=== PATIENT | male | born 1965 | race Caucasian/White ===

== ENCOUNTER 2016-02-22 05:28 | Inpatient (IN) | payer MEDICAID ==
[2016-02-22] VITALS (7 sets, daily range): BP systolic 142–160; BP diastolic 90–100
[~2016-02-22] VITALS: Ht 180.3 cm; Wt 137.9 kg
--- NOTE | ~2016-02-22 | EKG ---
[place], [place] ELECTROCARDIOGRAM REPORT NAME: ROHAN HANNA UNIT #: [id number] ROOM: 402 DOCTOR: COLLIN LEAL MD BIRTHDATE: [birth year] DOS: 02/22/2016 TIME: 05:56:16. RATE AND RHYTHM: Normal sinus rhythm at [address] interval 111 milliseconds, QRS duration 83 milliseconds, corrected QT interval 396 milliseconds, QRS axis is 66. IMPRESSION: Borderline short CT interval, normal sinus rhythm, essentially normal EKG. COLLIN LEAL MD CM:EKGRPT:ELECTROCARDIOGRAM REPORT [id number] COLLIN LEAL MD
--- NOTE | ~2016-02-22 | EKG ---
[place], [place] ELECTROCARDIOGRAM REPORT NAME: ROHAN HANNA UNIT #: [id number] ROOM: 402 DOCTOR: COLLIN LEAL MD BIRTHDATE: [birth year] DOS: 02/22/16 05:56:16 RATE AND RHYTHM: Normal sinus rhythm at 73 beats per minute. MD interval 111 milliseconds, QRS duration is 83 milliseconds, corrected QT interval is 396 milliseconds, QRS axis is 66. IMPRESSION: Sinus rhythm. Borderline short MD interval. Impression is normal EKG. COLLIN LEAL MD CM:EKGRPT:ELECTROCARDIOGRAM REPORT [id number] COLLIN LEAL MD
[~2016-02-22 05:28] MED LIST: ALBUTEROL2.5 MG/0.5 INH; AMOXICILLIN500 MG PO; CIPRO250 MG PO; CIPRO500 MG PO; CYCLOBENZAPRINE10 MG PO; DUONEB 3 MG/3 ML3 M1 INH; HYDROCODONE BIT1 T11 PO; MICRO AIR1 EACH MC; PREDNICOT20 MG PO; PREDNISONE10 MG PO; PREDNISONE20 M1 PO; PREDNISONE50 MG PO; TESSALON PERLE200 MG PO; VENTOLIN 02.5 MG/3 M INH; VIBRAMYCIN100 MG PO
[2016-02-22 06:04] LABS: BASO # 0.1 10*3/uL (0.0-0.1); BASO % 1.1 % (0.0-1.0); EOS # 0.9 10*3/uL (0.0-0.4); EOS % 7.7 % (1.0-4.0); HEMATOCRIT 46.2 % (42.0-52.0); HEMOGLOBIN 16.1 g/dl (14.0-18.0); IG # 0.1 10*3/uL (0.0-0.1); LYMPH # 3.8 10*3/uL (1.3-4.4); LYMPH % 33.2 % (27.0-41.0); MEAN CELL VOLUME 92.8 fl (80.0-94.0); MEAN CORPUSCULAR HGB 32.3 pg (27.0-31.0); MEAN CORPUSCULAR HGB CONC 34.8 g/dl (33.0-37.0); MEAN PLATELET VOLUME 10.6 fl (9.6-12.3); MONO % 8.3 % (3.0-9.0); NEUT # 5.7 10*3/uL (2.3-7.9); NEUT % 49.3 % (47.0-73.0); PLATELET COUNT AUTOMATED 238 10*3/uL (130-400); RED BLOOD COUNT 4.98 10*6/uL (4.50-5.90); RED CELL DISTRI WIDTH 13.2 % (0-14.5); WHITE BLOOD COUNT 11.5 10*3/uL (4.8-10.8)
[2016-02-22 06:18] LABS: ALBUMIN 3.2 gm/dl (3.1-4.5); ALKALINE PHOSPHATASE 110 U/L (45-117); BILIRUBIN, TOTAL 0.3 mg/dl (0.2-1.0); BUN 15 mg/dl (7-24); CARBON DIOXIDE 26 mmol/L (21-32); CHLORIDE 105 mmol/L (98-107); EST GLOM FILT AFRICAN AMERICAN > 60 ml/min; GLUCOSE 117 mg/dL (65-99); POTASSIUM 4.3 mmol/L (3.5-5.1); SGOT/AST 65 IU/L (3-35); SGPT/ALT 164 U/L (12-78); SODIUM 141 mmol/L (136-145); TOTAL PROTEIN 7.8 gm/dL (6.4-8.2)
[2016-02-22 06:19] LABS: INTERNATIONAL NORM RATIO 0.9 (2.0-3.5); PROTHROMBIN TIME 9.6 SECONDS (9.0-12.4)
[2016-02-22 06:21] LABS: C-REACTIVE PROTEIN 1.74 MG/DL (0-0.3); CKMB 3.9 ng/ml (0.5-3.6); MAGNESIUM 2.2 mg/dL (1.5-2.1)
[2016-02-22 12:22] LABS: BILIRUBIN NEGATIVE (NEGATIVE); BLOOD NEGATIVE (NEGATIVE); CLARITY CLEAR (CLEAR); COLOR YELLOW (YELLOW); GLUCOSE NEGATIVE (NEGATIVE); KETONE NEGATIVE (NEGATIVE); LEUKO ESTERASE NEGATIVE (NEGATIVE); NITRITE NEGATIVE (NEGATIVE); PH 6.5 (5.0-9.0); PROTEIN NEGATIVE (NEGATIVE); UROBILINOGEN 0.2 E.U./dl (0.2-1.0)
[2016-02-22 12:40] LABS: EPITHELIAL CELLS 0-2; MUCOUS TRACE; URINE REFLEX COMMENT NO (NO)
[2016-02-22 13:08] LABS: CKMB 3.1 ng/ml (0.5-3.6)
[2016-02-22 18:31] LABS: CKMB 2.5 ng/ml (0.5-3.6)
[2016-02-23] VITALS: BP 156/103
[2016-02-23 00:45] LABS: CKMB 2.4 ng/ml (0.5-3.6)
[2016-02-23 06:24] LABS: HEMATOCRIT 44.6 % (42.0-52.0); HEMOGLOBIN 15.4 g/dl (14.0-18.0); MEAN CELL VOLUME 92.5 fl (80.0-94.0); MEAN CORPUSCULAR HGB CONC 34.5 g/dl (33.0-37.0); MEAN PLATELET VOLUME 10.9 fl (9.6-12.3); PLATELET COUNT AUTOMATED 235 10*3/uL (130-400); RED BLOOD COUNT 4.82 10*6/uL (4.50-5.90); RED CELL DISTRI WIDTH 12.9 % (0-14.5); WHITE BLOOD COUNT 25.3 10*3/uL (4.8-10.8)
[2016-02-23 06:46] LABS: HEMOGLOBIN A1c 5.8 % (4.8-5.6)
[2016-02-23 07:00] LABS: ALKALINE PHOSPHATASE 88 U/L (45-117); BILIRUBIN, TOTAL 0.4 mg/dl (0.2-1.0); BUN 12 mg/dl (7-24); CARBON DIOXIDE 26 mmol/L (21-32); CHLORIDE 110 mmol/L (98-107); EST GLOM FILT AFRICAN AMERICAN > 60 ml/min; GLUCOSE 149 mg/dL (65-99); SGOT/AST 27 IU/L (3-35); SGPT/ALT 127 U/L (12-78); SODIUM 144 mmol/L (136-145); TOTAL PROTEIN 7.7 gm/dL (6.4-8.2)
[2016-02-23 07:08] LABS: FREE T4 1.04 ng/dl (0.76-1.46); MAGNESIUM 2.5 mg/dL (1.5-2.1); THYROID STIM HORMONE (HS) 0.216 uIU/ml (0.358-4.75)
[2016-02-23 07:17] LABS: LYMPHOCYTE # 1.3 10*3/uL (1.3-4.4); MONOCYTE # 1.5 10*3/uL (0.1-1.0); NEUTROPHIL # 22.5 10*3/uL (2.3-7.9); NEUTROPHILS 89 % (47-73); PLATELET SUFFICIENCY NORMAL (NORMAL); TOTAL CELLS COUNTED 100 #CELLS
[2016-02-23 07:24] LABS: PROTHROMBIN TIME 10.5 SECONDS (9.0-12.4)
[2016-02-23 07:32] LABS: HEPATITIS C VIRUS ANTIBODY >11.0 s/co (0.0-0.9)
[2016-02-23 08:00] VITALS: BP 140/90
[2016-02-23 12:00] VITALS: BP 130/82
[2016-02-23 13:04] LABS: FOLIC ACID 16.27 ng/mL (>5.38)
[2016-02-23 16:13] VITALS: BP 160/88
[2016-02-23 20:00] VITALS: BP 150/89
[2016-02-24] VITALS: BP 159/94
[2016-02-24 04:00] VITALS: BP 150/100
[2016-02-24 08:00] VITALS: BP 146/86
[2016-02-24 12:00] VITALS: BP 150/89
[2016-02-24 12:30] LABS: HEMATOCRIT 44.8 % (42.0-52.0); HEMOGLOBIN 15.6 g/dl (14.0-18.0); MEAN CELL VOLUME 93.1 fl (80.0-94.0); MEAN CORPUSCULAR HGB 32.4 pg (27.0-31.0); MEAN CORPUSCULAR HGB CONC 34.8 g/dl (33.0-37.0); MEAN PLATELET VOLUME 10.8 fl (9.6-12.3); PLATELET COUNT AUTOMATED 249 10*3/uL (130-400); RED BLOOD COUNT 4.81 10*6/uL (4.50-5.90); RED CELL DISTRI WIDTH 13.2 % (0-14.5); WHITE BLOOD COUNT 20.1 10*3/uL (4.8-10.8)
[2016-02-24 12:44] LABS: ALBUMIN 3.1 gm/dl (3.1-4.5); ALKALINE PHOSPHATASE 83 U/L (45-117); BILIRUBIN, TOTAL 0.3 mg/dl (0.2-1.0); BUN 15 mg/dl (7-24); CARBON DIOXIDE 25 mmol/L (21-32); CHLORIDE 107 mmol/L (98-107); EST GLOM FILT AFRICAN AMERICAN > 60 ml/min; GLUCOSE 173 mg/dL (65-99); POTASSIUM 4.1 mmol/L (3.5-5.1); SGOT/AST 16 IU/L (3-35); SGPT/ALT 94 U/L (12-78); SODIUM 141 mmol/L (136-145); TOTAL PROTEIN 7.5 gm/dL (6.4-8.2)
[2016-02-24 13:15] LABS: LYMPHOCYTE # 1.2 10*3/uL (1.3-4.4); NEUTROPHIL # 18.9 10*3/uL (2.3-7.9); NEUTROPHILS 94 % (47-73); PLATELET SUFFICIENCY NORMAL (NORMAL); TOTAL CELLS COUNTED 100 #CELLS
[2016-02-24] MEDS ORDERED: PREDNISONE10 MG PO (13:44)
[2016-02-24] MEDS ORDERED: CIPRO500 MG PO (13:44)
[2016-02-24] MEDS ORDERED: LISINOPRIL10 M1 PO (13:44)
[2016-03-29] MEDS ORDERED: DEBROX15 ML OT (09:50)
[2016-04-13] MEDS ORDERED: PREDNISONE10 MG PO (13:32)
[2016-04-13] MEDS ORDERED: ZITHROMAX250 MG PO (13:36)
[2016-04-13] MEDS ORDERED: ALBUTEROL 3 ML 33 ML INH (13:37)
[2016-04-16] MEDS ORDERED: DOXYCYCLINE MO100 M1 PO (14:54)
[2016-04-16] MEDS ORDERED: PREDNISONE10 MG PO (14:54)
[2016-04-16] MEDS ORDERED: VITAMIN D-32000 UNIT PO (14:59)
== END 2016-02-24 15:23 | disposition home or self-care (01) | DRG 192 ==
LOC: ED 05:28 → EDHOLD 06:40 → 4E 07:53
PROVIDERS: Emergency Medicine; Hospitalist; Internal Medicine
DX: J44.1 Chronic obstructive pulmonary disease with (acute) exacerbation (principal); E88.81 Metabolic syndrome and other insulin resistance; K76.0 Fatty (change of) liver, not elsewhere classified; E66.01 Morbid (severe) obesity due to excess calories; F17.200 Nicotine dependence, unspecified, uncomplicated; D72.829 Elevated white blood cell count, unspecified; E83.41 Hypermagnesemia; I10 Essential (primary) hypertension; Z79.899 Other long term (current) drug therapy; Z82.5 Family history of asthma and other chronic lower respiratory diseases; Z86.19 Personal history of other infectious and parasitic diseases; Z68.30 Body mass index [BMI] 30.0-30.9, adult

== ENCOUNTER 2016-05-29 04:18 | Inpatient (IN) | payer OTHER ==
[~2016-05-29] VITALS: Ht 180.3 cm; Wt 136.1 kg
[2016-05-29] VITALS (10 sets, daily range): BP systolic 131–169; BP diastolic 84–100
[~2016-05-29 04:18] MED LIST changes: +ALBUTEROL 3 ML 33 ML INH; +DEBROX15 ML OT; +DOXYCYCLINE MO100 M1 PO; +LISINOPRIL10 M1 PO; +VITAMIN D-32000 UNIT PO; +ZITHROMAX250 MG PO
[2016-05-29 04:46] LABS: BASO # 0.1 10*3/uL (0.0-0.1); BASO % 0.5 % (0.0-1.0); EOS # 0.2 10*3/uL (0.0-0.4); EOS % 1.4 % (1.0-4.0); HEMATOCRIT 49.3 % (42.0-52.0); HEMOGLOBIN 17.1 g/dl (14.0-18.0); IG # 0.1 10*3/uL (0.0-0.1); LYMPH % 6.6 % (27.0-41.0); MEAN CELL VOLUME 94.1 fl (80.0-94.0); MEAN CORPUSCULAR HGB 32.6 pg (27.0-31.0); MEAN CORPUSCULAR HGB CONC 34.7 g/dl (33.0-37.0); MEAN PLATELET VOLUME 10.8 fl (9.6-12.3); MONO # 0.8 10*3/uL (0.1-1.0); MONO % 5.1 % (3.0-9.0); NEUT # 13.2 10*3/uL (2.3-7.9); NEUT % 85.9 % (47.0-73.0); PLATELET COUNT AUTOMATED 280 10*3/uL (130-400); RED BLOOD COUNT 5.24 10*6/uL (4.50-5.90); RED CELL DISTRI WIDTH 13.3 % (0-14.5); WHITE BLOOD COUNT 15.4 10*3/uL (4.8-10.8)
[2016-05-29 05:02] LABS: ALBUMIN 3.7 gm/dl (3.1-4.5); ALKALINE PHOSPHATASE 120 U/L (45-117); BILIRUBIN, TOTAL 0.6 mg/dl (0.2-1.0); BUN 16 mg/dl (7-24); C-REACTIVE PROTEIN 1.35 MG/DL (0-0.3); CARBON DIOXIDE 28 mmol/L (21-32); CHLORIDE 104 mmol/L (98-107); EST GLOM FILT AFRICAN AMERICAN > 60 ml/min; GLUCOSE 166 mg/dL (65-99); POTASSIUM 4.2 mmol/L (3.5-5.1); SGOT/AST 82 IU/L (3-35); SGPT/ALT 194 U/L (12-78); SODIUM 140 mmol/L (136-145); TOTAL PROTEIN 8.4 gm/dL (6.4-8.2)
[2016-05-29 05:05] LABS: TROPONIN I < 0.015 ng/ml (<0.045)
[2016-05-29 07:23] LABS: HEMATOCRIT 48.1 % (42.0-52.0); HEMOGLOBIN 16.5 g/dl (14.0-18.0); MEAN CELL VOLUME 94.9 fl (80.0-94.0); MEAN CORPUSCULAR HGB 32.5 pg (27.0-31.0); MEAN CORPUSCULAR HGB CONC 34.3 g/dl (33.0-37.0); MEAN PLATELET VOLUME 10.8 fl (9.6-12.3); PLATELET COUNT AUTOMATED 263 10*3/uL (130-400); RED BLOOD COUNT 5.07 10*6/uL (4.50-5.90); RED CELL DISTRI WIDTH 13.4 % (0-14.5); WHITE BLOOD COUNT 17.2 10*3/uL (4.8-10.8)
[2016-05-29 07:43] LABS: ATYPICAL LYMPHS 2 % (0-0); LYMPHOCYTE # 0.7 10*3/uL (1.3-4.4); MONOCYTE # 0.7 10*3/uL (0.1-1.0); NEUTROPHIL # 15.8 10*3/uL (2.3-7.9); NEUTROPHILS 92 % (47-73); PLATELET SUFFICIENCY NORMAL (NORMAL); TOTAL CELLS COUNTED 100 #CELLS
[2016-05-29 08:30] LABS: BILIRUBIN NEGATIVE (NEGATIVE); BLOOD NEGATIVE (NEGATIVE); CLARITY CLEAR (CLEAR); COLOR YELLOW (YELLOW); GLUCOSE NEGATIVE (NEGATIVE); KETONE NEGATIVE (NEGATIVE); LEUKO ESTERASE NEGATIVE (NEGATIVE); NITRITE NEGATIVE (NEGATIVE); PROTEIN NEGATIVE (NEGATIVE); SPECIFIC GRAVITY 1.025 (1.005-1.030); UROBILINOGEN 0.2 E.U./dl (0.2-1.0)
[2016-05-29 09:02] LABS: MUCOUS 1+; URINE REFLEX COMMENT NO (NO)
[2016-05-29 12:20] LABS: CPK 309 U/L (39-308)
[2016-05-29 12:24] LABS: CKMB 9.7 ng/ml (0.5-3.6); TROPONIN I < 0.015 ng/ml (<0.045)
[2016-05-29] MEDS ORDERED: LISINOPRIL10 M1 PO (14:14)
[2016-05-29 18:21] LABS: CPK 355 U/L (39-308)
[2016-05-29 18:26] LABS: TROPONIN I < 0.015 ng/ml (<0.045)
[2016-05-29 18:38] LABS: CKMB 11.1 ng/ml (0.5-3.6)
[2016-05-30] VITALS: BP 108/74
[2016-05-30 00:43] LABS: CPK 377 U/L (39-308)
[2016-05-30 00:45] LABS: CKMB 11.7 ng/ml (0.5-3.6); TROPONIN I < 0.015 ng/ml (<0.045)
[2016-05-30 06:05] LABS: ALBUMIN 2.7 gm/dl (3.1-4.5); ALKALINE PHOSPHATASE 72 U/L (45-117); BILIRUBIN, TOTAL 0.5 mg/dl (0.2-1.0); BUN 13 mg/dl (7-24); CARBON DIOXIDE 29 mmol/L (21-32); CHLORIDE 108 mmol/L (98-107); CHOLESTEROL 91 mg/dL (<200); EST GLOM FILT AFRICAN AMERICAN > 60 ml/min; FREE T4 1.15 ng/dl (0.76-1.46); GLUCOSE 93 mg/dL (65-99); HDL CHOLESTEROL 43 mg/dl (40-60); LDL CHOLESTEROL 32 mg/dL (9-159); MAGNESIUM 1.9 mg/dL (1.5-2.1); PHOSPHOROUS 2.3 mg/dL (2.5-4.9); POTASSIUM 3.4 mmol/L (3.5-5.1); SGOT/AST 59 IU/L (3-35); SGPT/ALT 130 U/L (12-78); SODIUM 141 mmol/L (136-145); THYROID STIM HORMONE (HS) 0.361 uIU/ml (0.358-4.75); TOTAL PROTEIN 6.4 gm/dL (6.4-8.2); TRIGLYCERIDES 79 mg/dl (<150); VLDL CHOLESTEROL 16 mg/dL (6-40)
[2016-05-30 06:06] LABS: BASO % 0.4 % (0.0-1.0); EOS # 0.1 10*3/uL (0.0-0.4); EOS % 0.9 % (1.0-4.0); HEMATOCRIT 42.9 % (42.0-52.0); HEMOGLOBIN 14.5 g/dl (14.0-18.0); LYMPH # 1.5 10*3/uL (1.3-4.4); LYMPH % 22.6 % (27.0-41.0); MEAN CELL VOLUME 97.1 fl (80.0-94.0); MEAN CORPUSCULAR HGB 32.8 pg (27.0-31.0); MEAN CORPUSCULAR HGB CONC 33.8 g/dl (33.0-37.0); MEAN PLATELET VOLUME 10.9 fl (9.6-12.3); MONO # 0.6 10*3/uL (0.1-1.0); NEUT # 4.5 10*3/uL (2.3-7.9); NEUT % 66.5 % (47.0-73.0); PLATELET COUNT AUTOMATED 187 10*3/uL (130-400); RED BLOOD COUNT 4.42 10*6/uL (4.50-5.90); RED CELL DISTRI WIDTH 13.3 % (0-14.5); WHITE BLOOD COUNT 6.8 10*3/uL (4.8-10.8)
[2016-05-30 06:10] LABS: HEMOGLOBIN A1c 5.8 % (4.8-5.6); PROTHROMBIN TIME 10.7 SECONDS (9.0-12.4)
[2016-05-30 06:54] LABS: FOLIC ACID 9.68 ng/mL (>5.38); VITAMIN D, 25-HYDROXY 26.3 ng/mL (30-100)
[2016-05-30 08:00] VITALS: BP 152/90
[2016-05-30] MEDS ORDERED: Zofran4 MG PO (11:08)
[2016-05-30] MEDS ORDERED: CIPRO500 MG PO (11:08)
[2016-05-30] MEDS ORDERED: FLAGYL500 MG PO (11:08)
[2016-05-30 12:00] VITALS: BP 139/83
== END 2016-05-30 12:37 | disposition home or self-care (01) | DRG 871 ==
LOC: ED 04:18 → 4E 08:44 → EDHOLD 08:44 → 4E 08:56
PROVIDERS: Emergency Medicine Emergency Medical Services; Internal Medicine
DX: A41.9 Sepsis, unspecified organism (principal); J96.20 Acute and chronic respiratory failure, unspecified whether with hypoxia or hypercapnia; K76.0 Fatty (change of) liver, not elsewhere classified; E44.0 Moderate protein-calorie malnutrition; Z68.41 Body mass index [BMI] 40.0-44.9, adult; K52.9 Noninfective gastroenteritis and colitis, unspecified; K82.8 Other specified diseases of gallbladder; J44.9 Chronic obstructive pulmonary disease, unspecified; I10 Essential (primary) hypertension; E66.01 Morbid (severe) obesity due to excess calories; Z87.891 Personal history of nicotine dependence; Z82.5 Family history of asthma and other chronic lower respiratory diseases; Z79.899 Other long term (current) drug therapy

== ENCOUNTER 2016-06-22 07:05 | Inpatient (IN) | payer OTHER ==
[~2016-06-22] VITALS: Ht 180.3 cm; Wt 143.8 kg
[2016-06-22] VITALS (7 sets, daily range): BP systolic 123–152; BP diastolic 87–104
[~2016-06-22 07:05] MED LIST changes: +FLAGYL500 MG PO; +Zofran4 MG PO
[2016-06-22 09:42] LABS: BASO # 0.1 10*3/uL (0.0-0.1); EOS # 0.6 10*3/uL (0.0-0.4); EOS % 5.4 % (1.0-4.0); HEMATOCRIT 45.3 % (42.0-52.0); HEMOGLOBIN 15.5 g/dl (14.0-18.0); IG # 0.1 10*3/uL (0.0-0.1); LYMPH # 3.8 10*3/uL (1.3-4.4); LYMPH % 36.3 % (27.0-41.0); MEAN CELL VOLUME 93.4 fl (80.0-94.0); MEAN CORPUSCULAR HGB CONC 34.2 g/dl (33.0-37.0); MONO # 0.9 10*3/uL (0.1-1.0); MONO % 8.2 % (3.0-9.0); NEUT # 5.1 10*3/uL (2.3-7.9); NEUT % 48.5 % (47.0-73.0); PLATELET COUNT AUTOMATED 228 10*3/uL (130-400); RED BLOOD COUNT 4.85 10*6/uL (4.50-5.90); RED CELL DISTRI WIDTH 12.8 % (0-14.5); WHITE BLOOD COUNT 10.5 10*3/uL (4.8-10.8)
[2016-06-22 09:59] LABS: BUN 8 mg/dl (7-24); CARBON DIOXIDE 30 mmol/L (21-32); CHLORIDE 109 mmol/L (98-107); EST GLOM FILT AFRICAN AMERICAN > 60 ml/min; GLUCOSE 117 mg/dL (65-99); POTASSIUM 3.7 mmol/L (3.5-5.1); SODIUM 140 mmol/L (136-145)
[2016-06-22 10:03] LABS: TROPONIN I < 0.015 ng/ml (<0.045)
[2016-06-22 11:46] LABS: CPK 224 U/L (39-308)
[2016-06-22 11:54] LABS: TROPONIN I < 0.015 ng/ml (<0.045)
[2016-06-22 13:51] LABS: BILIRUBIN NEGATIVE (NEGATIVE); BLOOD NEGATIVE (NEGATIVE); CLARITY CLEAR (CLEAR); COLOR YELLOW (YELLOW); GLUCOSE NEGATIVE (NEGATIVE); KETONE NEGATIVE (NEGATIVE); LEUKO ESTERASE NEGATIVE (NEGATIVE); NITRITE NEGATIVE (NEGATIVE); PH 5.5 (5.0-9.0); PROTEIN NEGATIVE (NEGATIVE); UROBILINOGEN 0.2 E.U./dl (0.2-1.0)
[2016-06-22 14:20] LABS: URINE REFLEX COMMENT NO (NO)
[2016-06-22 19:22] LABS: CKMB 3.6 ng/ml (0.5-3.6); CPK 221 U/L (39-308)
[2016-06-22 19:27] LABS: TROPONIN I < 0.015 ng/ml (<0.045)
[2016-06-23] VITALS: BP 152/88
[2016-06-23 00:31] LABS: CKMB 3.6 ng/ml (0.5-3.6); CPK 187 U/L (39-308)
[2016-06-23 00:36] LABS: TROPONIN I < 0.015 ng/ml (<0.045)
[2016-06-23 06:23] LABS: BASO % 0.1 % (0.0-1.0); HEMATOCRIT 44.3 % (42.0-52.0); IG # 0.2 10*3/uL (0.0-0.1); LYMPH # 1.7 10*3/uL (1.3-4.4); LYMPH % 7.9 % (27.0-41.0); MEAN CELL VOLUME 95.5 fl (80.0-94.0); MEAN CORPUSCULAR HGB 32.3 pg (27.0-31.0); MEAN CORPUSCULAR HGB CONC 33.9 g/dl (33.0-37.0); MEAN PLATELET VOLUME 11.3 fl (9.6-12.3); MONO # 0.6 10*3/uL (0.1-1.0); MONO % 2.8 % (3.0-9.0); NEUT # 18.4 10*3/uL (2.3-7.9); NEUT % 88.1 % (47.0-73.0); PLATELET COUNT AUTOMATED 231 10*3/uL (130-400); RED BLOOD COUNT 4.64 10*6/uL (4.50-5.90); RED CELL DISTRI WIDTH 12.9 % (0-14.5); WHITE BLOOD COUNT 20.9 10*3/uL (4.8-10.8)
[2016-06-23 06:56] LABS: ALBUMIN 3.2 gm/dl (3.1-4.5); BILIRUBIN, TOTAL 0.3 mg/dl (0.2-1.0); BUN 11 mg/dl (7-24); CARBON DIOXIDE 26 mmol/L (21-32); CHLORIDE 110 mmol/L (98-107); CHOLESTEROL 163 mg/dL (<200); EST GLOM FILT AFRICAN AMERICAN > 60 ml/min; GLUCOSE 175 mg/dL (65-99); MAGNESIUM 2.2 mg/dL (1.5-2.1); PHOSPHOROUS 2.2 mg/dL (2.5-4.9); POTASSIUM 3.9 mmol/L (3.5-5.1); SGOT/AST 17 IU/L (3-35); SGPT/ALT 46 U/L (12-78); SODIUM 142 mmol/L (136-145); TOTAL PROTEIN 7.2 gm/dL (6.4-8.2)
[2016-06-23 07:02] LABS: ALKALINE PHOSPHATASE 83 U/L (45-117); FREE T4 0.91 ng/dl (0.76-1.46); HDL CHOLESTEROL 63 mg/dl (40-60); LDL CHOLESTEROL 86 mg/dL (9-159); THYROID STIM HORMONE (HS) 0.231 uIU/ml (0.358-4.75); TRIGLYCERIDES 68 mg/dl (<150); VLDL CHOLESTEROL 14 mg/dL (6-40)
[2016-06-23 07:05] LABS: PROTHROMBIN TIME 10.4 SECONDS (9.0-12.4)
[2016-06-23 07:17] LABS: FOLIC ACID 8.62 ng/mL (>5.38); VITAMIN D, 25-HYDROXY 29.4 ng/mL (30-100)
[2016-06-23 08:00] VITALS: BP 140/85
[2016-06-23 12:00] VITALS: BP 158/86
[2016-06-23] MEDS ORDERED: SPIRIVA RESPIMAT4 GM INH (13:05)
[2016-06-23] MEDS ORDERED: PREDNISONE10 MG PO (13:05)
[2016-06-23] MEDS ORDERED: LISINOPRIL10 M1 PO (13:12)
[2016-06-23] MEDS ORDERED: VITAMIN E-SYNT400 IU PO (13:12)
[2016-06-23] MEDS ORDERED: AZITHROMYCIN500 M2 PO (13:12)
[2016-06-23] MEDS ORDERED: DUONEB 3 MG/3 ML3 M1 NEB (13:12)
[2016-06-23] MEDS ORDERED: D-1000 185 MG-11 TAB PO (13:12)
[2016-06-23] MEDS ORDERED: MUCINEX ER600 MG PO (13:12)
== END 2016-06-23 14:28 | disposition home or self-care (01) | DRG 190 ==
LOC: ED 07:05 → 4E 09:41 → EDHOLD 09:41 → 4E 10:03
PROVIDERS: Emergency Medicine; Hospitalist
DX: J44.0 Chronic obstructive pulmonary disease with (acute) lower respiratory infection (principal); J96.21 Acute and chronic respiratory failure with hypoxia; J18.9 Pneumonia, unspecified organism; E44.0 Moderate protein-calorie malnutrition; E88.81 Metabolic syndrome and other insulin resistance; K76.0 Fatty (change of) liver, not elsewhere classified; Z68.41 Body mass index [BMI] 40.0-44.9, adult; J44.1 Chronic obstructive pulmonary disease with (acute) exacerbation; I10 Essential (primary) hypertension; B19.20 Unspecified viral hepatitis C without hepatic coma; E66.01 Morbid (severe) obesity due to excess calories; E55.9 Vitamin D deficiency, unspecified; Z87.891 Personal history of nicotine dependence; Z84.89 Family history of other specified conditions; Z82.5 Family history of asthma and other chronic lower respiratory diseases

== ENCOUNTER 2016-08-10 09:57 | Emergency (ER) | payer OTHER ==
[~2016-08-10] VITALS: Wt 136.1 kg
[~2016-08-10 09:57] MED LIST changes: +AZITHROMYCIN500 M2 PO; +D-1000 185 MG-11 TAB PO; +DUONEB 3 MG/3 ML3 M1 NEB; +MUCINEX ER600 MG PO; +SPIRIVA RESPIMAT4 GM INH; +VITAMIN E-SYNT400 IU PO
[2016-08-10 10:33] LABS: BASO # 0.1 10*3/uL (0.0-0.1); BASO % 0.7 % (0.0-1.0); EOS # 0.5 10*3/uL (0.0-0.4); HEMATOCRIT 44.8 % (42.0-52.0); HEMOGLOBIN 15.8 g/dl (14.0-18.0); IG # 0.1 10*3/uL (0.0-0.1); LYMPH # 3.5 10*3/uL (1.3-4.4); LYMPH % 26.5 % (27.0-41.0); MEAN CELL VOLUME 91.8 fl (80.0-94.0); MEAN CORPUSCULAR HGB 32.4 pg (27.0-31.0); MEAN CORPUSCULAR HGB CONC 35.3 g/dl (33.0-37.0); MONO # 0.9 10*3/uL (0.1-1.0); MONO % 6.8 % (3.0-9.0); NEUT # 8.2 10*3/uL (2.3-7.9); NEUT % 61.5 % (47.0-73.0); PLATELET COUNT AUTOMATED 253 10*3/uL (130-400); RED BLOOD COUNT 4.88 10*6/uL (4.50-5.90); RED CELL DISTRI WIDTH 13.2 % (0-14.5); WHITE BLOOD COUNT 13.3 10*3/uL (4.8-10.8)
[2016-08-10 10:46] LABS: ALBUMIN 3.4 gm/dl (3.1-4.5); ALKALINE PHOSPHATASE 105 U/L (45-117); BILIRUBIN, TOTAL 0.7 mg/dl (0.2-1.0); BUN 8 mg/dl (7-24); CARBON DIOXIDE 26 mmol/L (21-32); CHLORIDE 106 mmol/L (98-107); EST GLOM FILT AFRICAN AMERICAN > 60 ml/min; GLUCOSE 110 mg/dL (65-99); POTASSIUM 3.7 mmol/L (3.5-5.1); SGOT/AST 101 IU/L (3-35); SGPT/ALT 218 U/L (12-78); SODIUM 140 mmol/L (136-145); TOTAL PROTEIN 7.9 gm/dL (6.4-8.2)
[2016-08-10] MEDS ORDERED: PREDNISONE10 MG PO (12:21)
[2016-08-10] MEDS ORDERED: DOXYCYCLINE100 M3 PO (12:21)
== END 2016-08-10 12:37 | disposition home or self-care (01) ==
LOC: ED 09:57
PROVIDERS: Registered Nurse
DX: J20.9 Acute bronchitis, unspecified (principal); J45.909 Unspecified asthma, uncomplicated; J44.9 Chronic obstructive pulmonary disease, unspecified; Z87.891 Personal history of nicotine dependence

== ENCOUNTER 2016-10-17 13:03 | Emergency (ER) | payer OTHER ==
[~2016-10-17] VITALS: Wt 134.3 kg
[~2016-10-17 13:03] MED LIST changes: +DOXYCYCLINE100 M3 PO
[2016-10-17 13:37] LABS: BASO # 0.1 10*3/uL (0.0-0.1); BASO % 0.9 % (0.0-1.0); EOS # 0.4 10*3/uL (0.0-0.4); EOS % 2.9 % (1.0-4.0); HEMATOCRIT 45.5 % (42.0-52.0); HEMOGLOBIN 15.9 g/dl (14.0-18.0); LYMPH # 2.9 10*3/uL (1.3-4.4); LYMPH % 24.7 % (27.0-41.0); MEAN CELL VOLUME 95.2 fl (80.0-94.0); MEAN CORPUSCULAR HGB 33.3 pg (27.0-31.0); MEAN CORPUSCULAR HGB CONC 34.9 g/dl (33.0-37.0); MEAN PLATELET VOLUME 11.1 fl (9.6-12.3); MONO # 0.9 10*3/uL (0.1-1.0); MONO % 7.5 % (3.0-9.0); NEUT # 7.5 10*3/uL (2.3-7.9); NEUT % 63.4 % (47.0-73.0); PLATELET COUNT AUTOMATED 244 10*3/uL (130-400); RED BLOOD COUNT 4.78 10*6/uL (4.50-5.90); RED CELL DISTRI WIDTH 13.1 % (0-14.5); WHITE BLOOD COUNT 11.9 10*3/uL (4.8-10.8)
[2016-10-17 13:46] LABS: ACT PARTIAL THROMBO TIME 24.3 SECONDS (20.8-31.5)
[2016-10-17 13:53] LABS: ALBUMIN 3.4 gm/dl (3.1-4.5); ALKALINE PHOSPHATASE 86 U/L (45-117); BUN 8 mg/dl (7-24); CHLORIDE 106 mmol/L (98-107); CKMB 1.5 ng/ml (0.5-3.6); CPK 82 U/L (39-308); CREATININE 0.84 mg/dL (0.70-1.30); LIPASE 176 U/L (73-393); MAGNESIUM 2.3 mg/dL (1.5-2.1); POTASSIUM 4.2 mmol/L (3.5-5.1); SGOT/AST 68 IU/L (3-35); SGPT/ALT 117 U/L (12-78); SODIUM 141 mmol/L (136-145); TOTAL PROTEIN 7.7 gm/dL (6.4-8.2)
[2016-10-17 13:55] LABS: TROPONIN I < 0.015 ng/ml (<0.045)
== END 2016-10-17 14:41 | disposition left against medical advice (07) ==
LOC: ED 13:03
PROVIDERS: Emergency Medicine
DX: J44.1 Chronic obstructive pulmonary disease with (acute) exacerbation (principal); R42 Dizziness and giddiness; I10 Essential (primary) hypertension; E11.9 Type 2 diabetes mellitus without complications; Z87.891 Personal history of nicotine dependence

== ENCOUNTER 2016-11-08 08:03 | Emergency (ER) | payer OTHER ==
[~2016-11-08] VITALS: Ht 180.3 cm; Wt 133.4 kg
[2016-11-08 08:21] LABS: BASO # 0.1 10*3/uL (0.0-0.1); EOS # 0.7 10*3/uL (0.0-0.4); EOS % 6.3 % (1.0-4.0); HEMATOCRIT 44.3 % (42.0-52.0); HEMOGLOBIN 15.3 g/dl (14.0-18.0); LYMPH # 3.6 10*3/uL (1.3-4.4); LYMPH % 34.3 % (27.0-41.0); MEAN CELL VOLUME 94.3 fl (80.0-94.0); MEAN CORPUSCULAR HGB 32.6 pg (27.0-31.0); MEAN CORPUSCULAR HGB CONC 34.5 g/dl (33.0-37.0); MEAN PLATELET VOLUME 11.1 fl (9.6-12.3); MONO # 0.9 10*3/uL (0.1-1.0); MONO % 8.4 % (3.0-9.0); NEUT # 5.2 10*3/uL (2.3-7.9); NEUT % 49.5 % (47.0-73.0); PLATELET COUNT AUTOMATED 263 10*3/uL (130-400); RED CELL DISTRI WIDTH 12.7 % (0-14.5); WHITE BLOOD COUNT 10.5 10*3/uL (4.8-10.8)
[2016-11-08] MEDS ORDERED: TOBRAMYCIN 5 ML5 M1 OPH (08:21)
[2016-11-08 08:30] LABS: ACT PARTIAL THROMBO TIME 25.9 SECONDS (20.8-31.5)
[2016-11-08 08:41] LABS: ALBUMIN 3.3 gm/dl (3.1-4.5); ALKALINE PHOSPHATASE 86 U/L (45-117); BUN 12 mg/dl (7-24); CHLORIDE 109 mmol/L (98-107); CREATININE 0.84 mg/dL (0.70-1.30); LIPASE 179 U/L (73-393); MAGNESIUM 2.2 mg/dL (1.5-2.1); POTASSIUM 3.8 mmol/L (3.5-5.1); SGOT/AST 67 IU/L (3-35); SGPT/ALT 113 U/L (12-78); SODIUM 142 mmol/L (136-145); TOTAL PROTEIN 7.5 gm/dL (6.4-8.2)
[2016-11-08 08:43] LABS: TROPONIN I < 0.015 ng/ml (<0.045)
[2016-11-08] MEDS ORDERED: PREDNISONE10 MG PO (09:31)
[2016-11-08] MEDS ORDERED: DUONEB 3 MG/3 ML3 M1 INH (09:31)
== END 2016-11-08 09:40 | disposition home or self-care (01) ==
LOC: ED 08:03
PROVIDERS: Family Medicine Adult Medicine
DX: J44.1 Chronic obstructive pulmonary disease with (acute) exacerbation (principal); I10 Essential (primary) hypertension; E66.01 Morbid (severe) obesity due to excess calories; Z68.41 Body mass index [BMI] 40.0-44.9, adult; Z98.890 Other specified postprocedural states; Z87.891 Personal history of nicotine dependence; Z89.012 Acquired absence of left thumb; Z79.899 Other long term (current) drug therapy

== ENCOUNTER 2017-02-08 12:32 | Emergency (ER) | payer OTHER ==
[~2017-02-08] VITALS: Ht 180.3 cm; Wt 136.1 kg
[~2017-02-08 12:32] MED LIST changes: +TOBRAMYCIN 5 ML5 M1 OPH
[2017-02-08 13:33] LABS: BASO # 0.1 10*3/uL (0.0-0.1); BASO % 0.8 % (0.0-1.0); EOS # 0.6 10*3/uL (0.0-0.4); EOS % 5.1 % (1.0-4.0); HEMATOCRIT 43.3 % (42.0-52.0); HEMOGLOBIN 15.1 g/dl (14.0-18.0); LYMPH % 27.6 % (27.0-41.0); MEAN CELL VOLUME 91.9 fl (80.0-94.0); MEAN CORPUSCULAR HGB 32.1 pg (27.0-31.0); MEAN CORPUSCULAR HGB CONC 34.9 g/dl (33.0-37.0); MEAN PLATELET VOLUME 10.5 fl (9.6-12.3); MONO # 0.8 10*3/uL (0.1-1.0); MONO % 7.2 % (3.0-9.0); NEUT # 6.5 10*3/uL (2.3-7.9); NEUT % 58.9 % (47.0-73.0); PLATELET COUNT AUTOMATED 265 10*3/uL (130-400); RED BLOOD COUNT 4.71 10*6/uL (4.50-5.90); RED CELL DISTRI WIDTH 12.6 % (0-14.5)
[2017-02-08 13:52] LABS: ALBUMIN 3.3 gm/dl (3.1-4.5); ALKALINE PHOSPHATASE 112 U/L (45-117); BUN 13 mg/dl (7-24); CHLORIDE 108 mmol/L (98-107); CREATININE 0.86 mg/dL (0.70-1.30); POTASSIUM 3.7 mmol/L (3.5-5.1); SGOT/AST 33 IU/L (3-35); SGPT/ALT 68 U/L (12-78); SODIUM 141 mmol/L (136-145); TOTAL PROTEIN 7.8 gm/dL (6.4-8.2)
[2017-02-08] MEDS ORDERED: DUONEB 3 MG/3 ML3 M1 INH (15:56)
[2017-02-08] MEDS ORDERED: PREDNISONE20 M1 PO (15:56)
[2017-02-08] MEDS ORDERED: VIBRAMYCIN100 MG PO (15:57)
== END 2017-02-08 16:08 | disposition home or self-care (01) ==
LOC: ED 12:32
PROVIDERS: Emergency Medicine
DX: J45.901 Unspecified asthma with (acute) exacerbation (principal); J44.9 Chronic obstructive pulmonary disease, unspecified; J96.20 Acute and chronic respiratory failure, unspecified whether with hypoxia or hypercapnia; I10 Essential (primary) hypertension; F10.10 Alcohol abuse, uncomplicated; E83.39 Other disorders of phosphorus metabolism; R73.9 Hyperglycemia, unspecified; Z68.41 Body mass index [BMI] 40.0-44.9, adult; Z86.19 Personal history of other infectious and parasitic diseases; Z87.891 Personal history of nicotine dependence; Z79.899 Other long term (current) drug therapy

== ENCOUNTER 2017-03-22 03:38 | Emergency (ER) | payer OTHER ==
[~2017-03-22] VITALS: Wt 133.4 kg
[2017-03-22 04:21] LABS: BASO # 0.1 10*3/uL (0.0-0.1); BASO % 0.7 % (0.0-1.0); EOS # 0.5 10*3/uL (0.0-0.4); EOS % 4.3 % (1.0-4.0); HEMATOCRIT 43.6 % (42.0-52.0); HEMOGLOBIN 14.8 g/dl (14.0-18.0); LYMPH # 3.6 10*3/uL (1.3-4.4); LYMPH % 32.1 % (27.0-41.0); MEAN CELL VOLUME 90.6 fl (80.0-94.0); MEAN CORPUSCULAR HGB 30.8 pg (27.0-31.0); MEAN CORPUSCULAR HGB CONC 33.9 g/dl (33.0-37.0); MEAN PLATELET VOLUME 10.9 fl (9.6-12.3); MONO % 8.8 % (3.0-9.0); NEUT % 53.7 % (47.0-73.0); PLATELET COUNT AUTOMATED 257 10*3/uL (130-400); RED BLOOD COUNT 4.81 10*6/uL (4.50-5.90); RED CELL DISTRI WIDTH 12.9 % (0-14.5); WHITE BLOOD COUNT 11.1 10*3/uL (4.8-10.8)
[2017-03-22 04:37] LABS: ALKALINE PHOSPHATASE 90 U/L (45-117); BUN 11 mg/dl (7-24); CHLORIDE 106 mmol/L (98-107); CREATININE 0.89 mg/dL (0.70-1.30); POTASSIUM 3.6 mmol/L (3.5-5.1); SGOT/AST 68 IU/L (3-35); SGPT/ALT 124 U/L (12-78); SODIUM 142 mmol/L (136-145); TOTAL PROTEIN 7.3 gm/dL (6.4-8.2)
[2017-03-22 04:38] LABS: TROPONIN I 0.017 ng/ml (<0.045)
[2017-03-22 04:45] LABS: ABG BASE EXCESS 0.5 mmol/L (-2.0-2.0); ABG HCO3 24.4 mmol/l (22-26); ABG O2 SATURATION 95.3 % (95-97); ARTERIAL BLOOD GAS PCO2 37.7 mmHg (35-45); ARTERIAL BLOOD GAS PH 7.423 (7.35-7.45); ARTERIAL BLOOD GAS PO2 69.9 mmHg (80-90)
[2017-03-22] MEDS ORDERED: ZITHROMAX250 MG PO (06:44)
[2017-03-22] MEDS ORDERED: PREDNISONE20 M1 PO (06:44)
== END 2017-03-22 06:46 | disposition home or self-care (01) ==
LOC: ED 03:38
PROVIDERS: Emergency Medicine Emergency Medical Services
DX: J44.1 Chronic obstructive pulmonary disease with (acute) exacerbation (principal); I10 Essential (primary) hypertension; E11.65 Type 2 diabetes mellitus with hyperglycemia; E66.01 Morbid (severe) obesity due to excess calories; Z87.891 Personal history of nicotine dependence; Z98.890 Other specified postprocedural states; Z68.41 Body mass index [BMI] 40.0-44.9, adult; Z79.899 Other long term (current) drug therapy

== ENCOUNTER 2017-04-15 08:38 | Emergency (ER) | payer OTHER ==
[~2017-04-15] VITALS: Ht 180.3 cm; Wt 136.1 kg
[2017-04-15] MEDS ORDERED: PREDNISONE20 M1 PO (10:30)
[2017-04-15] MEDS ORDERED: VIBRAMYCIN100 MG PO (10:30)
== END 2017-04-15 10:37 | disposition home or self-care (01) ==
LOC: ED 08:38
DX: J44.1 Chronic obstructive pulmonary disease with (acute) exacerbation (principal); J96.20 Acute and chronic respiratory failure, unspecified whether with hypoxia or hypercapnia; I10 Essential (primary) hypertension; R73.9 Hyperglycemia, unspecified; K76.0 Fatty (change of) liver, not elsewhere classified; F10.10 Alcohol abuse, uncomplicated; Z79.899 Other long term (current) drug therapy; Z86.19 Personal history of other infectious and parasitic diseases; Z68.41 Body mass index [BMI] 40.0-44.9, adult; Z87.891 Personal history of nicotine dependence

== ENCOUNTER 2017-06-10 09:01 | Emergency (ER) | payer OTHER ==
[~2017-06-10] VITALS: Wt 138.8 kg
[2017-06-10] MEDS ORDERED: DELTASONE20 M1 PO (10:15)
== END 2017-06-10 10:31 | disposition home or self-care (01) ==
LOC: ED 09:01
DX: F17.200 Nicotine dependence, unspecified, uncomplicated (principal); J44.1 Chronic obstructive pulmonary disease with (acute) exacerbation

== ENCOUNTER 2017-09-10 10:49 | Emergency (ER) | payer OTHER ==
[~2017-09-10] VITALS: Ht 180.3 cm; Wt 138.8 kg
--- NOTE | ~2017-09-10 | EKG ---
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
[~2017-09-10 10:49] MED LIST changes: +DELTASONE20 M1 PO
[2017-09-10] MEDS ORDERED: PROAIR HFA8.5 GM INH (11:16)
[2017-09-10] MEDS ORDERED: PREDNISONE10 MG PO (11:16)
[2017-09-10] MEDS ORDERED: LEVOFLOXACIN500 MG PO (11:16)
[2017-09-10 11:17] LABS: BASO # 0.1 10*3/uL (0.0-0.1); EOS # 0.6 10*3/uL (0.0-0.4); EOS % 5.4 % (1.0-4.0); LYMPH # 3.2 10*3/uL (1.3-4.4); MEAN CELL VOLUME 93.6 fl (80.0-94.0); MEAN CORPUSCULAR HGB 31.9 pg (27.0-31.0); MEAN CORPUSCULAR HGB CONC 34.1 g/dl (33.0-37.0); MONO # 0.8 10*3/uL (0.1-1.0); MONO % 7.4 % (3.0-9.0); NEUT # 6.5 10*3/uL (2.3-7.9); NEUT % 57.8 % (47.0-73.0); PLATELET COUNT AUTOMATED 240 10*3/uL (130-400); RED CELL DISTRI WIDTH 12.7 % (0-14.5); WHITE BLOOD COUNT 11.3 10*3/uL (4.8-10.8)
[2017-09-10 11:31] LABS: ALBUMIN 3.5 gm/dl (3.1-4.5); ALKALINE PHOSPHATASE 99 U/L (45-117); BUN 12 mg/dl (7-24); CHLORIDE 109 mmol/L (98-107); CREATININE 1.01 mg/dL (0.70-1.30); POTASSIUM 3.9 mmol/L (3.5-5.1); SGOT/AST 56 IU/L (3-35); SGPT/ALT 96 U/L (12-78); SODIUM 142 mmol/L (136-145); TROPONIN I < 0.015 ng/ml (<0.045)
[2017-09-23] MEDS ORDERED: NAPROSYN500 MG PO (08:18)
[2017-09-23] MEDS ORDERED: PREDNISONE50 MG PO (09:20)
[2017-09-23] MEDS ORDERED: VIBRAMYCIN100 MG PO (09:20)
[2017-10-10] MEDS ORDERED: PREDNISONE50 MG PO (07:26)
== END 2017-09-10 11:59 | disposition home or self-care (01) ==
LOC: ED 10:49
PROVIDERS: Nurse Practitioner Family
DX: J44.1 Chronic obstructive pulmonary disease with (acute) exacerbation (principal); R03.0 Elevated blood-pressure reading, without diagnosis of hypertension; Z87.891 Personal history of nicotine dependence

== ENCOUNTER 2017-12-01 06:02 | Emergency (ER) | payer OTHER ==
[~2017-12-01] VITALS: Ht 180.3 cm; Wt 138.8 kg
--- NOTE | ~2017-12-01 | EKG ---
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
[~2017-12-01 06:02] MED LIST changes: +LEVAQUIN750 M1 PO; +LEVOFLOXACIN500 MG PO; +NAPROSYN500 MG PO; +PROAIR HFA8.5 GM INH
[2017-12-01 06:37] LABS: BASO # 0.1 10*3/uL (0.0-0.1); BASO % 1.1 % (0.0-1.0); EOS # 0.6 10*3/uL (0.0-0.4); EOS % 6.4 % (1.0-4.0); HEMATOCRIT 43.3 % (42.0-52.0); HEMOGLOBIN 14.7 g/dl (14.0-18.0); LYMPH # 2.9 10*3/uL (1.3-4.4); LYMPH % 30.6 % (27.0-41.0); MEAN CELL VOLUME 92.1 fl (80.0-94.0); MEAN CORPUSCULAR HGB 31.3 pg (27.0-31.0); MEAN CORPUSCULAR HGB CONC 33.9 g/dl (33.0-37.0); MEAN PLATELET VOLUME 10.7 fl (9.6-12.3); MONO # 0.8 10*3/uL (0.1-1.0); MONO % 7.9 % (3.0-9.0); NEUT # 5.1 10*3/uL (2.3-7.9); NEUT % 53.6 % (47.0-73.0); PLATELET COUNT AUTOMATED 260 10*3/uL (130-400); RED CELL DISTRI WIDTH 12.9 % (0-14.5); WHITE BLOOD COUNT 9.5 10*3/uL (4.8-10.8)
[2017-12-01 06:56] LABS: ALBUMIN 3.1 gm/dl (3.1-4.5); ALKALINE PHOSPHATASE 98 U/L (45-117); BUN 11 mg/dl (7-24); CHLORIDE 106 mmol/L (98-107); POTASSIUM 3.9 mmol/L (3.5-5.1); SGOT/AST 65 IU/L (3-35); SGPT/ALT 91 U/L (12-78); SODIUM 142 mmol/L (136-145); TOTAL PROTEIN 7.9 gm/dL (6.4-8.2)
[2017-12-01 07:07] LABS: TROPONIN I < 0.015 ng/ml (<0.045)
[2017-12-01] MEDS ORDERED: AEROECLIPSE II1 EACH MC (07:46)
[2017-12-01] MEDS ORDERED: VENTOLIN 02.5 MG/3 M INH (07:46)
[2017-12-01] MEDS ORDERED: SPIRIVA -- 3018 MCG INH (07:46)
[2017-12-01] MEDS ORDERED: PREDNISONE50 MG PO (07:46)
== END 2017-12-01 08:15 | disposition home or self-care (01) ==
LOC: ED 06:02
PROVIDERS: Student in an Organized Health Care Education/Training Program
DX: J44.1 Chronic obstructive pulmonary disease with (acute) exacerbation (principal); I10 Essential (primary) hypertension; R73.9 Hyperglycemia, unspecified; F10.10 Alcohol abuse, uncomplicated; Z68.41 Body mass index [BMI] 40.0-44.9, adult; Z79.899 Other long term (current) drug therapy

== ENCOUNTER 2018-02-22 15:18 | Emergency (ER) | payer OTHER ==
[~2018-02-22] VITALS: Wt 140.6 kg
--- NOTE | ~2018-02-22 | EKG ---
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
[~2018-02-22 15:18] MED LIST changes: +AEROECLIPSE II1 EACH MC; +SPIRIVA -- 3018 MCG INH
[2018-02-22] MEDS ORDERED: CLARITIN10 MG PO (15:33)
[2018-02-22] MEDS ORDERED: LEVAQUIN750 M1 PO (15:33)
[2018-02-22] MEDS ORDERED: PREDNISONE10 MG PO (15:33)
[2018-02-22] MEDS ORDERED: Ipratropium Brom3 ML INH (15:38)
[2018-02-22 15:57] LABS: BASO # 0.1 10*3/uL (0.0-0.1); BASO % 0.8 % (0.0-1.0); EOS # 0.7 10*3/uL (0.0-0.4); EOS % 6.2 % (1.0-4.0); HEMATOCRIT 45.7 % (42.0-52.0); HEMOGLOBIN 15.5 g/dl (14.0-18.0); LYMPH # 3.4 10*3/uL (1.3-4.4); LYMPH % 28.3 % (27.0-41.0); MEAN CORPUSCULAR HGB 30.9 pg (27.0-31.0); MEAN CORPUSCULAR HGB CONC 33.9 g/dl (33.0-37.0); MEAN PLATELET VOLUME 10.7 fl (9.6-12.3); MONO # 0.9 10*3/uL (0.1-1.0); MONO % 7.7 % (3.0-9.0); NEUT # 6.7 10*3/uL (2.3-7.9); NEUT % 56.7 % (47.0-73.0); PLATELET COUNT AUTOMATED 275 10*3/uL (130-400); RED BLOOD COUNT 5.02 10*6/uL (4.50-5.90); RED CELL DISTRI WIDTH 12.9 % (0-14.5); WHITE BLOOD COUNT 11.9 10*3/uL (4.8-10.8)
[2018-02-22 16:15] LABS: ALBUMIN 3.2 gm/dl (3.1-4.5); ALKALINE PHOSPHATASE 107 U/L (45-117); BUN 16 mg/dl (7-24); CHLORIDE 110 mmol/L (98-107); CREATININE 0.97 mg/dL (0.70-1.30); POTASSIUM 3.9 mmol/L (3.5-5.1); SGOT/AST 52 IU/L (3-35); SGPT/ALT 90 U/L (12-78); SODIUM 143 mmol/L (136-145); TOTAL PROTEIN 8.2 gm/dL (6.4-8.2); TROPONIN I 0.017 ng/ml (<0.045)
== END 2018-02-22 16:53 | disposition left against medical advice (07) ==
LOC: ED 15:18
PROVIDERS: Nurse Practitioner Family
DX: J44.1 Chronic obstructive pulmonary disease with (acute) exacerbation (principal); I10 Essential (primary) hypertension; E66.01 Morbid (severe) obesity due to excess calories; Z79.899 Other long term (current) drug therapy; Z79.2 Long term (current) use of antibiotics; Z68.41 Body mass index [BMI] 40.0-44.9, adult; Z87.891 Personal history of nicotine dependence

== ENCOUNTER 2018-10-29 20:43 | Emergency (ER) | payer OTHER ==
[~2018-10-29] VITALS: Ht 180.3 cm; Wt 131.1 kg
--- NOTE | ~2018-10-29 | EKG ---
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
[~2018-10-29 20:43] MED LIST changes: +CLARITIN10 MG PO; +Ipratropium Brom3 ML INH
[2018-10-29 21:20] LABS: BASO # 0.1 10*3/uL (0.0-0.1); BASO % 0.9 % (0.0-1.0); EOS # 0.3 10*3/uL (0.0-0.4); EOS % 2.3 % (1.0-4.0); HEMATOCRIT 46.1 % (42.0-52.0); HEMOGLOBIN 15.7 g/dl (14.0-18.0); LYMPH # 3.1 10*3/uL (1.3-4.4); LYMPH % 24.2 % (27.0-41.0); MEAN CORPUSCULAR HGB 31.3 pg (27.0-31.0); MEAN CORPUSCULAR HGB CONC 34.1 g/dl (33.0-37.0); MEAN PLATELET VOLUME 10.9 fl (9.6-12.3); MONO # 1.2 10*3/uL (0.1-1.0); MONO % 9.1 % (3.0-9.0); NEUT # 8.1 10*3/uL (2.3-7.9); NEUT % 63.1 % (47.0-73.0); PLATELET COUNT AUTOMATED 231 10*3/uL (130-400); RED BLOOD COUNT 5.01 10*6/uL (4.50-5.90); RED CELL DISTRI WIDTH 13.2 % (0-14.5); WHITE BLOOD COUNT 12.8 10*3/uL (4.8-10.8)
[2018-10-29 21:31] LABS: ACT PARTIAL THROMBO TIME 25.8 SECONDS (20.0-32.1)
[2018-10-29 21:40] LABS: ALBUMIN 3.5 gm/dl (3.1-4.5); ALKALINE PHOSPHATASE 104 U/L (45-117); BUN 10 mg/dl (7-24); CHLORIDE 106 mmol/L (98-107); CREATININE 0.94 mg/dL (0.70-1.30); POTASSIUM 3.5 mmol/L (3.5-5.1); SGOT/AST 38 IU/L (3-35); SGPT/ALT 79 U/L (12-78); SODIUM 138 mmol/L (136-145); TOTAL PROTEIN 8.1 gm/dL (6.4-8.2)
[2018-10-29 21:41] LABS: TROPONIN I < 0.015 ng/ml (<0.045)
[2018-10-29] MEDS ORDERED: PREDNISONE10 M1 PO (23:13)
[2018-10-29] MEDS ORDERED: ANORO ELLIPTA1 EACH INH (23:13)
== END 2018-10-29 23:25 | disposition home or self-care (01) ==
LOC: ED 20:43
PROVIDERS: Emergency Medicine
DX: J44.1 Chronic obstructive pulmonary disease with (acute) exacerbation (principal); E66.01 Morbid (severe) obesity due to excess calories; E11.65 Type 2 diabetes mellitus with hyperglycemia; I10 Essential (primary) hypertension; Z68.41 Body mass index [BMI] 40.0-44.9, adult; Z79.899 Other long term (current) drug therapy

== ENCOUNTER 2019-02-16 09:48 | Emergency (ER) | payer SELFPAY ==
[~2019-02-16] VITALS: Ht 180.3 cm; Wt 135.2 kg
[~2019-02-16 09:48] MED LIST changes: +ANORO ELLIPTA1 EACH INH; +PREDNISONE10 M1 PO
[2019-02-16 10:09] LABS: BASO # 0.1 10*3/uL (0.0-0.1); BASO % 0.9 % (0.0-1.0); EOS # 0.4 10*3/uL (0.0-0.4); EOS % 3.4 % (1.0-4.0); HEMATOCRIT 45.4 % (42.0-52.0); HEMOGLOBIN 15.5 g/dl (14.0-18.0); LYMPH % 28.8 % (27.0-41.0); MEAN CELL VOLUME 94.8 fl (80.0-94.0); MEAN CORPUSCULAR HGB 32.4 pg (27.0-31.0); MEAN CORPUSCULAR HGB CONC 34.1 g/dl (33.0-37.0); MEAN PLATELET VOLUME 10.9 fl (9.6-12.3); MONO # 0.8 10*3/uL (0.1-1.0); MONO % 7.5 % (3.0-9.0); NEUT # 6.1 10*3/uL (2.3-7.9); NEUT % 58.9 % (47.0-73.0); PLATELET COUNT AUTOMATED 251 10*3/uL (130-400); RED BLOOD COUNT 4.79 10*6/uL (4.50-5.90); WHITE BLOOD COUNT 10.3 10*3/uL (4.8-10.8)
[2019-02-16 10:39] LABS: ACT PARTIAL THROMBO TIME 25.6 SECONDS (20.0-32.1); INTERNATIONAL NORM RATIO 0.9 (2.0-3.5)
[2019-02-16 10:47] LABS: ALBUMIN 3.2 gm/dl (3.1-4.5); ALKALINE PHOSPHATASE 118 U/L (45-117); BUN 14 mg/dl (7-24); CHLORIDE 110 mmol/L (98-107); POTASSIUM 4.2 mmol/L (3.5-5.1); SGOT/AST 61 IU/L (3-35); SGPT/ALT 114 U/L (12-78); SODIUM 140 mmol/L (136-145); TOTAL PROTEIN 7.6 gm/dL (6.4-8.2); TROPONIN I < 0.015 ng/ml (<0.045)
[2019-02-16] MEDS ORDERED: VENTOLIN 02.5 MG/3 M INH (12:21)
[2019-02-16] MEDS ORDERED: PREDNISONE50 MG PO (12:21)
[2019-02-16] MEDS ORDERED: ANORO ELLIPTA1 EACH INH (12:21)
== END 2019-02-16 12:27 | disposition home or self-care (01) ==
LOC: ED 09:48
PROVIDERS: Nurse Practitioner Family
DX: J44.1 Chronic obstructive pulmonary disease with (acute) exacerbation (principal); I10 Essential (primary) hypertension; Z79.899 Other long term (current) drug therapy; Z89.012 Acquired absence of left thumb; Z87.891 Personal history of nicotine dependence

== ENCOUNTER 2019-03-19 09:28 | Inpatient (IN) | payer SELFPAY ==
[~2019-03-19] VITALS: Ht 180.3 cm; Wt 142.9 kg
[2019-03-19 09:35] VITALS: BP 126/92
[2019-03-19 09:50] LABS: BASO # 0.1 10*3/uL (0.0-0.1); EOS # 0.6 10*3/uL (0.0-0.4); EOS % 5.1 % (1.0-4.0); HEMATOCRIT 45.1 % (42.0-52.0); HEMOGLOBIN 15.4 g/dl (14.0-18.0); LYMPH # 3.6 10*3/uL (1.3-4.4); LYMPH % 32.4 % (27.0-41.0); MEAN CELL VOLUME 94.7 fl (80.0-94.0); MEAN CORPUSCULAR HGB 32.4 pg (27.0-31.0); MEAN CORPUSCULAR HGB CONC 34.1 g/dl (33.0-37.0); MEAN PLATELET VOLUME 10.7 fl (9.6-12.3); MONO # 0.9 10*3/uL (0.1-1.0); MONO % 8.4 % (3.0-9.0); NEUT # 5.8 10*3/uL (2.3-7.9); NEUT % 52.3 % (47.0-73.0); PLATELET COUNT AUTOMATED 226 10*3/uL (130-400); RED BLOOD COUNT 4.76 10*6/uL (4.50-5.90); RED CELL DISTRI WIDTH 12.6 % (0-14.5); WHITE BLOOD COUNT 11.2 10*3/uL (4.8-10.8)
[2019-03-19 09:59] LABS: ACT PARTIAL THROMBO TIME 25.5 SECONDS (20.0-32.1); INTERNATIONAL NORM RATIO 0.9 (2.0-3.5)
[2019-03-19 10:04] LABS: ALBUMIN 3.1 gm/dl (3.1-4.5); ALKALINE PHOSPHATASE 122 U/L (45-117); BUN 10 mg/dl (7-24); CHLORIDE 109 mmol/L (98-107); CREATININE 1.09 mg/dL (0.70-1.30); POTASSIUM 4.3 mmol/L (3.5-5.1); SGOT/AST 55 IU/L (3-35); SGPT/ALT 112 U/L (12-78); SODIUM 140 mmol/L (136-145); TOTAL PROTEIN 7.6 gm/dL (6.4-8.2)
[2019-03-19 10:06] LABS: TROPONIN I < 0.015 ng/ml (<0.045)
[2019-03-19 11:29] VITALS: BP 140/86
[2019-03-19 12:00] VITALS: BP 152/100
--- NOTE | 2019-03-19 12:15 | NUR ---
Time: 1214 A 54 year old MALE admitted to 5E under services of DR. ELVIS RAPP,COLLIN. Pt. arrived via wheel chair from ER. Chief complaint: SOB, COUGH . FELICIA HARDIN
[2019-03-19 16:00] VITALS: BP 155/94
--- NOTE | 2019-03-19 19:22 | NUR ---
ATTEMPTED TO CALL RESIDENT IMMIGRATION COORDINATOR CELL PHONE AND DR LEAL CELL..NO ANSWER TO NOTIFY OF PT BP
--- NOTE | 2019-03-19 19:39 | NUR ---
PT SITTING ON THE SIDE OF THE BED. SHOWS NO S/S OF PAIN/DISCOMFORT. PT COMPLAINS OF A HEADACHE AND IS REQUESTING SOME TYLENOL. PRN TYLENOL GIVEN ORDERED. WILL CHECK EFFECTIVENESS. CALL LIGHT WITHIN REACH.
[2019-03-19 20:00] VITALS: BP 158/88
--- NOTE | 2019-03-19 20:34 | NUR ---
NOTIFIED PTS BP HAS BEEN RUNNING HIGH . NO NEW ORDERS AT THIS TIME.
--- NOTE | 2019-03-19 20:40 | NUR ---
PATIENT STATES TYLENOL WAS EFFECTIVE. WILL CONTINUE TO MONITOR.
--- NOTE | 2019-03-19 22:44 | NUR ---
24 HR chart check completed.
[2019-03-20] VITALS: BP 140/82
[2019-03-20 06:12] LABS: BASO % 0.1 % (0.0-1.0); HEMATOCRIT 46.5 % (42.0-52.0); HEMOGLOBIN 15.7 g/dl (14.0-18.0); LYMPH # 1.6 10*3/uL (1.3-4.4); LYMPH % 7.9 % (27.0-41.0); MEAN CELL VOLUME 93.2 fl (80.0-94.0); MEAN CORPUSCULAR HGB 31.5 pg (27.0-31.0); MEAN CORPUSCULAR HGB CONC 33.8 g/dl (33.0-37.0); MEAN PLATELET VOLUME 10.9 fl (9.6-12.3); MONO # 0.5 10*3/uL (0.1-1.0); MONO % 2.7 % (3.0-9.0); NEUT # 17.8 10*3/uL (2.3-7.9); NEUT % 88.3 % (47.0-73.0); PLATELET COUNT AUTOMATED 250 10*3/uL (130-400); RED BLOOD COUNT 4.99 10*6/uL (4.50-5.90); RED CELL DISTRI WIDTH 12.5 % (0-14.5); WHITE BLOOD COUNT 20.2 10*3/uL (4.8-10.8)
[2019-03-20 06:36] LABS: ACT PARTIAL THROMBO TIME 24.7 SECONDS (20.0-32.1)
[2019-03-20 06:37] LABS: ALBUMIN 3.3 gm/dl (3.1-4.5); BUN 12 mg/dl (7-24); CHLORIDE 110 mmol/L (98-107); CHOLESTEROL 146 mg/dL (<200); CREATININE 0.95 mg/dL (0.70-1.30); FREE T4 0.99 ng/dl (0.76-1.46); HDL CHOLESTEROL 48 mg/dl (40-60); LDL CHOLESTEROL 86 mg/dL (9-159); PHOSPHOROUS 2.9 mg/dL (2.5-4.9); SGOT/AST 25 IU/L (3-35); SODIUM 140 mmol/L (136-145); TRIGLYCERIDES 61 mg/dl (<150); VLDL CHOLESTEROL 12 mg/dL (6-40)
[2019-03-20 06:42] LABS: ALKALINE PHOSPHATASE 94 U/L (45-117); SGPT/ALT 88 U/L (12-78); THYROID STIM HORMONE (HS) 0.311 uIU/ml (0.358-4.75)
[2019-03-20 08:00] VITALS: BP 148/98
--- NOTE | 2019-03-20 09:00 | NUR ---
Reporting Analyst in to talk to patient. Patient states lives at home alone with his and daughter checking in on him. There are 0 steps in the home. Physician: Dr. Jose Greer Pharmacy: [facility] in [place] Home health services: none Patient's level of ADLs: INDEPENDENT Patient has working utilities: yes DME: his son's nebulizer Follow-up physician's appointment after d/c: he prefers to make his own follow up appt in the resident clinic after discharge depending on his work schedule Does patient want to access PORTAL?: no Discharge plan discussed with patient. He lives at home alone with his and daughter checking in on him. He is independent in his ADLs and ambulation. He was laid off of work about 4 months ago and he states they called him back yesterday to return to work. He is aware he needs to talk to [facility] and CM will notify Kelsey. Discussed any home needs and he denies any home needs at this time. He would like to follow with Dr. Greer in the resident clinic but would like to make his won appt depending on his work schedule. He would also like to use the hospital pharmacy for his medications. He will provide transportation on discharge. When medically stable he will be discharged to home. AYE AKBAR
[2019-03-20 09:14] LABS: VITAMIN D, 25-HYDROXY 34.3 ng/mL (30-100)
[2019-03-20 12:00] VITALS: BP 128/58
--- NOTE | 2019-03-20 15:21 | NUR ---
Patient resting quietly with no c/o discomfort. Respirations easy and regular. Vital signs stable. No overt distress. ANU PENALOZA
[2019-03-20 16:00] VITALS: BP 140/88
--- NOTE | 2019-03-20 19:15 | NUR ---
PT RESTING IN BED. NO COMPLAINTS AT THIS TIME. RESPIRATIONS EASY AND REGULAR. NO S/S OF PAIN/DISCOMFORT. CALL LIGHT WITHIN REACH. WILL CONTINUE TO MONITOR.
[2019-03-20 20:00] VITALS: BP 153/90
--- NOTE | 2019-03-20 23:22 | NUR ---
24 HR chart check completed.
[2019-03-21] VITALS: BP 144/86
--- NOTE | 2019-03-21 01:15 | NUR ---
PT RESTING IN BED WITH EYES CLOSED. NO S/S OF DISTRESS NOTED. RESPIRATIONS EASY AND REGULAR. CALL LIGHT WITHIN REACH. WILL CONTINUE TO MONITOR.
[2019-03-21 07:02] LABS: HEMATOCRIT 47.3 % (42.0-52.0); HEMOGLOBIN 15.6 g/dl (14.0-18.0); MEAN CELL VOLUME 95.9 fl (80.0-94.0); MEAN CORPUSCULAR HGB 31.6 pg (27.0-31.0); MEAN PLATELET VOLUME 11.2 fl (9.6-12.3); PLATELET COUNT AUTOMATED 257 10*3/uL (130-400); RED BLOOD COUNT 4.93 10*6/uL (4.50-5.90); WHITE BLOOD COUNT 23.7 10*3/uL (4.8-10.8)
[2019-03-21 07:24] LABS: BUN 17 mg/dl (7-24); CHLORIDE 109 mmol/L (98-107); CREATININE 0.91 mg/dL (0.70-1.30); POTASSIUM 4.2 mmol/L (3.5-5.1); SODIUM 142 mmol/L (136-145)
[2019-03-21 07:56] LABS: ATYPICAL LYMPHS 1 % (0-0); PLATELET SUFFICIENCY NORMAL (NORMAL); TOTAL CELLS COUNTED 100 #CELLS
[2019-03-21 08:00] VITALS: BP 142/92
--- NOTE | 2019-03-21 08:00 | NUR ---
VS STABLE- A&O X3, DELIO, COLOR IS GOOD, SKIN WARM DRY AND INTACT, CAPILLARY REFILL <3 SECONDS, SKIN TURGOR NON-TENTING, POSITIVE PEDAL PULSES, IV SITE IN LEFT ARM INTACT, HEART SOUNDS NORMAL, RATE OF 94, LUNGS SOUNDS DIMINISHED BILATERAL WHEEZE, PULSE OX 94% ON ROOM AIR, RESPIRATIONS EASY NON-LABORED, RATE OF 20, PATIENT DENIES SHORTNESS OF BREATH AND CHEST PAIN, ABDOMEN SOFT NON-TENDER AND NON-DISTENDED, BOWEL SOUNDS X4, NO COMPLAINTS OF PAIN. PATIENT PLEASANT AND COOPERATIVE, NO FURTHER COMPLAINTS AT THIS TIME WILL CONTINUE TO ASSESS. MELVI BIGGS [facility]
--- NOTE | 2019-03-21 09:00 | NUR ---
Collections Rep in to see patient. Discussed making his follow up appt in the resident clinic and he stated that would be fine to make the appt in the morning as he will start working afternoon shift. He denies any home needs. When medically stable he will be discharged to home.
--- NOTE | 2019-03-21 10:57 | NUR ---
Follow-up appt was made by Dr. Woods per the resident clinic
[2019-03-21 12:00] VITALS: BP 140/92
--- NOTE | 2019-03-21 13:30 | NUR ---
Discharge instructions reviewed with patient/family. Patient receptive and verbalizes understanding. Follow-up care arranged. Written instructions given to patient/family. Heplock removed. All belongings with patient. Spoke to resident clinic, and they're going to call him with change of appointment. Patient aware. Condition stable. Stephany Dowell [facility]ICKLAND
== END 2019-03-21 13:30 | disposition home or self-care (01) | DRG 192 ==
LOC: ED 09:28 → 5E 11:21 → EDHOLD 11:21 → 5E 11:38
PROVIDERS: Emergency Medicine; Hospitalist; ADMIT Internal Medicine
DX: J43.9 Emphysema, unspecified (principal); R73.9 Hyperglycemia, unspecified; E87.8 Other disorders of electrolyte and fluid balance, not elsewhere classified; E88.81 Metabolic syndrome and other insulin resistance; K76.0 Fatty (change of) liver, not elsewhere classified; B18.2 Chronic viral hepatitis C; R74.0 Nonspecific elevation of levels of transaminase and lactic acid dehydrogenase [LDH]; I10 Essential (primary) hypertension; Z87.891 Personal history of nicotine dependence; Z83.6 Family history of other diseases of the respiratory system

== ENCOUNTER → 2019-04-01 | Outpatient (CLI) | payer SELFPAY | END | disposition home or self-care (01) | LOC: RESCLI 05:38 | DX: Z76.89 Persons encountering health services in other specified circumstances (principal); Z12.11 Encounter for screening for malignant neoplasm of colon; S68.52 Partial traumatic transphalangeal amputation of thumb; B18.2 Chronic viral hepatitis C; M19.90 Unspecified osteoarthritis, unspecified site; K42.9 Umbilical hernia without obstruction or gangrene; J44.9 Chronic obstructive pulmonary disease, unspecified; I10 Essential (primary) hypertension; E66.01 Morbid (severe) obesity due to excess calories; R29.818 Other symptoms and signs involving the nervous system; R73.03 Prediabetes; Z87.891 Personal history of nicotine dependence ==

== ENCOUNTER 2019-11-15 07:38 | Emergency (ER) | payer SELFPAY ==
[~2019-11-15] VITALS: Wt 129.3 kg
[2019-11-15 07:50] LABS: BASO # 0.1 10*3/uL (0.0-0.1); BASO % 0.8 % (0.0-1.0); EOS # 0.4 10*3/uL (0.0-0.4); HEMATOCRIT 44.8 % (42.0-52.0); LYMPH # 3.4 10*3/uL (1.3-4.4); MEAN CELL VOLUME 92.4 fl (80.0-94.0); MEAN CORPUSCULAR HGB 31.3 pg (27.0-31.0); MEAN CORPUSCULAR HGB CONC 33.9 g/dl (33.0-37.0); MEAN PLATELET VOLUME 10.5 fl (9.6-12.3); NEUT # 5.7 10*3/uL (2.3-7.9); NEUT % 53.8 % (47.0-73.0); PLATELET COUNT AUTOMATED 248 10*3/uL (130-400); RED BLOOD COUNT 4.85 10*6/uL (4.50-5.90); RED CELL DISTRI WIDTH 13.1 % (0-14.5); WHITE BLOOD COUNT 10.6 10*3/uL (4.8-10.8)
[2019-11-15 08:03] LABS: ACT PARTIAL THROMBO TIME 25.9 SECONDS (20.0-32.1); INTERNATIONAL NORM RATIO 0.9 (2.0-3.5)
[2019-11-15 08:35] LABS: ALBUMIN 3.3 gm/dl (3.1-4.5); ALKALINE PHOSPHATASE 100 U/L (45-117); BUN 17 mg/dl (7-24); CHLORIDE 109 mmol/L (98-107); CREATININE 0.83 mg/dL (0.70-1.30); POTASSIUM 4.1 mmol/L (3.5-5.1); SGOT/AST 60 IU/L (3-35); SGPT/ALT 105 U/L (12-78); SODIUM 141 mmol/L (136-145); TOTAL PROTEIN 7.7 gm/dL (6.4-8.2)
[2019-11-15 08:41] LABS: TROPONIN I < 0.015 ng/ml (<0.045)
[2019-11-15] MEDS ORDERED: PREDNISONE20 M1 PO (10:50)
== END 2019-11-15 11:07 | disposition home or self-care (01) ==
LOC: ED 07:38
PROVIDERS: Emergency Medicine
DX: J44.1 Chronic obstructive pulmonary disease with (acute) exacerbation (principal); I10 Essential (primary) hypertension; F32.9 Major depressive disorder, single episode, unspecified; Z79.899 Other long term (current) drug therapy

== ENCOUNTER 2021-02-23 02:25 | Emergency (ER) | payer SELFPAY ==
[~2021-02-23] VITALS: Ht 180.3 cm; Wt 136.1 kg
[2021-02-23] MEDS ORDERED: PREDNISONE20 M1 PO (04:10)
[2021-02-23] MEDS ORDERED: ZITHROMAX250 MG PO (04:10)
== END 2021-02-23 04:37 | disposition home or self-care (01) ==
LOC: ED 02:25
DX: J44.1 Chronic obstructive pulmonary disease with (acute) exacerbation (principal); Z87.891 Personal history of nicotine dependence

== ENCOUNTER 2023-05-23 07:08 | Emergency (ER) | payer SELFPAY ==
[~2023-05-23] VITALS: Wt 124.7 kg
[~2023-05-23 07:08] MED LIST changes: +PROVENTIL HFA6.7 GM INH
[2023-05-23] MEDS ORDERED: DIAZEPAM 5 MG TAB PO ONE (07:40)
[2023-05-23] MEDS ORDERED: Meclizine Hydrochloride 25 MG TAB PO ONE (07:40)
[2023-05-23] MEDS ORDERED: SODIUM CHLORIDE 0.9% 1,000 ML IV ONE (07:40)
[2023-05-23] MEDS ORDERED: Albuterol Sulfate 2.5 MG/3 ML VIAL NEB ONE (07:40)
[2023-05-23] MEDS ORDERED: methylPREDNISolone sod succ 125 MG VIAL IV ONE (07:40)
[2023-05-23 08:04] LABS: BASO # 0.1 10*3/uL (0.0-0.1); EOS # 0.5 10*3/uL (0.0-0.4); EOS % 4.9 % (1.0-4.0); HEMATOCRIT 48.4 % (42.0-52.0); LYMPH # 3.1 10*3/uL (1.3-4.4); LYMPH % 32.1 % (27.0-41.0); MEAN CELL VOLUME 91.3 fl (80.0-94.0); MEAN CORPUSCULAR HGB 31.1 pg (27.0-31.0); MEAN CORPUSCULAR HGB CONC 34.1 g/dl (33.0-37.0); MEAN PLATELET VOLUME 10.2 fl (9.6-12.3); MONO # 0.8 10*3/uL (0.1-1.0); MONO % 8.5 % (3.0-9.0); NEUT # 5.2 10*3/uL (2.3-7.9); PLATELET COUNT AUTOMATED 258 10*3/uL (130-400); RED CELL DISTRI WIDTH 13.2 % (0-14.5); WHITE BLOOD COUNT 9.8 10*3/uL (4.8-10.8)
[2023-05-23 08:26] LABS: ALKALINE PHOSPHATASE 93 U/L (46-116); BUN 12 mg/dl (9-23); CHLORIDE 104 mmol/L (98-107); POTASSIUM 4.2 mmol/L (3.4-5.1); SGPT/ALT 70 U/L (5-49); TOTAL PROTEIN 7.8 gm/dL (6.0-8.0)
[2023-05-23] MEDS ORDERED: ANTIVERT25 M2 PO (09:06)
[2023-05-23] MEDS ORDERED: PREDNISONE20 M1 PO (09:06)
[2023-05-23] MEDS ORDERED: AVPAK AZITHROM250 M1 PO (09:06)
== END 2023-05-23 09:26 | disposition home or self-care (01) ==
LOC: ED 07:08
PROVIDERS: Emergency Medicine
DX: J44.1 Chronic obstructive pulmonary disease with (acute) exacerbation (principal); R42 Dizziness and giddiness; I10 Essential (primary) hypertension; E78.5 Hyperlipidemia, unspecified; F32.A Depression, unspecified; Z98.890 Other specified postprocedural states; F17.210 Nicotine dependence, cigarettes, uncomplicated

== ENCOUNTER 2024-02-12 08:41 | Emergency (ER) | payer SELFPAY ==
[~2024-02-12] VITALS: Ht 170.1 cm; Wt 122.5 kg
[~2024-02-12 08:41] MED LIST changes: +ANTIVERT25 M2 PO; +AVPAK AZITHROM250 M1 PO
[2024-02-12] MEDS ORDERED: MAGNESIUM SULFATE 50 ML IV ONE (08:55)
[2024-02-12] MEDS ORDERED: Albuterol Sulfate 2.5 MG/3 ML VIAL NEB ONE (08:55)
[2024-02-12] MEDS ORDERED: methylPREDNISolone sod succ 125 MG VIAL IV ONE (08:55)
[2024-02-12] MEDS ORDERED: AZITHROMYCIN 250 MG TAB PO ONE (08:55)
[2024-02-12 09:10] LABS: BASO # 0.1 10*3/uL (0.0-0.1); BASO % 0.9 % (0.0-1.0); EOS # 0.6 10*3/uL (0.0-0.4); HEMATOCRIT 44.4 % (42.0-52.0); MEAN CELL VOLUME 90.6 fl (80.0-94.0); MEAN CORPUSCULAR HGB 30.6 pg (27.0-31.0); MEAN CORPUSCULAR HGB CONC 33.8 g/dl (33.0-37.0); MEAN PLATELET VOLUME 9.8 fl (9.6-12.3); MONO # 0.8 10*3/uL (0.1-1.0); MONO % 8.7 % (3.0-9.0); NEUT # 5.1 10*3/uL (2.3-7.9); NEUT % 59.1 % (47.0-73.0); PLATELET COUNT AUTOMATED 273 10*3/uL (130-400); RED CELL DISTRI WIDTH 13.1 % (0-14.5); WHITE BLOOD COUNT 8.6 10*3/uL (4.8-10.8)
[2024-02-12 09:27] LABS: BUN 13 mg/dl (9-23); CHLORIDE 105 mmol/L (98-107); POTASSIUM 4.1 mmol/L (3.4-5.1)
[2024-02-12] MEDS ORDERED: LASIX20 MG PO (09:54)
== END 2024-02-12 10:08 | disposition home or self-care (01) ==
LOC: ED 08:41
PROVIDERS: Emergency Medicine
DX: J44.1 Chronic obstructive pulmonary disease with (acute) exacerbation (principal); K42.9 Umbilical hernia without obstruction or gangrene; I10 Essential (primary) hypertension; F17.210 Nicotine dependence, cigarettes, uncomplicated; Z79.899 Other long term (current) drug therapy

== ENCOUNTER 2024-04-02 07:13 | Emergency (ER) | payer SELFPAY ==
[~2024-04-02] VITALS: Wt 124.7 kg
[~2024-04-02 07:13] MED LIST changes: +LASIX20 MG PO
[2024-04-02] MEDS ORDERED: SODIUM CHLORIDE 0.9% 1,000 ML IV ONE (07:45)
[2024-04-02] MEDS ORDERED: Ketorolac Tromethamine 15 MG/ML VIAL IV ONE (07:45)
[2024-04-02 07:58] LABS: BASO % 0.4 % (0.0-1.0); EOS % 0.3 % (1.0-4.0); HEMATOCRIT 43.4 % (42.0-52.0); MEAN CELL VOLUME 91.6 fl (80.0-94.0); MEAN CORPUSCULAR HGB 30.4 pg (27.0-31.0); MEAN CORPUSCULAR HGB CONC 33.2 g/dl (33.0-37.0); MEAN PLATELET VOLUME 10.3 fl (9.6-12.3); MONO % 14.3 % (3.0-9.0); NEUT # 4.3 10*3/uL (2.3-7.9); NEUT % 63.4 % (47.0-73.0); PLATELET COUNT AUTOMATED 189 10*3/uL (130-400); RED BLOOD COUNT 4.74 10*6/uL (4.50-5.90); RED CELL DISTRI WIDTH 13.5 % (0-14.5); WHITE BLOOD COUNT 6.7 10*3/uL (4.8-10.8)
[2024-04-02 08:18] LABS: BUN 11 mg/dl (9-23); CHLORIDE 102 mmol/L (98-107); POTASSIUM 3.6 mmol/L (3.4-5.1)
[2024-04-02] MEDS ORDERED: Albuterol Sulfate 2.5 MG/3 ML VIAL NEB ONE (08:20)
[2024-04-02] MEDS ORDERED: TAMIFLU 75MG CA75 MG PO (09:21)
== END 2024-04-02 18:12 | disposition home or self-care (01) ==
LOC: ED 07:13
PROVIDERS: Emergency Medicine
DX: J10.1 Influenza due to other identified influenza virus with other respiratory manifestations (principal); I21.4 Non-ST elevation (NSTEMI) myocardial infarction; Z53.29 Procedure and treatment not carried out because of patient's decision for other reasons; Z20.822 Contact with and (suspected) exposure to COVID-19; J44.9 Chronic obstructive pulmonary disease, unspecified; I10 Essential (primary) hypertension; E78.5 Hyperlipidemia, unspecified; J45.909 Unspecified asthma, uncomplicated; F32.A Depression, unspecified; F17.210 Nicotine dependence, cigarettes, uncomplicated; Z98.890 Other specified postprocedural states

== ENCOUNTER 2024-04-03 05:22 | Emergency (ER) | payer SELFPAY ==
[~2024-04-03] VITALS: Ht 182.8 cm; Wt 117.5 kg
[~2024-04-03 05:22] MED LIST changes: +TAMIFLU 75MG CA75 MG PO
== END 2024-04-03 07:17 | disposition home or self-care (01) ==
LOC: ED 05:22
DX: J10.1 Influenza due to other identified influenza virus with other respiratory manifestations (principal); R79.89 Other specified abnormal findings of blood chemistry; J44.9 Chronic obstructive pulmonary disease, unspecified; F17.210 Nicotine dependence, cigarettes, uncomplicated; Z98.890 Other specified postprocedural states; Z79.899 Other long term (current) drug therapy

== ENCOUNTER 2024-12-10 00:25 | Emergency (ER) | payer MEDICAID ==
[~2024-12-10] VITALS: Ht 154.9 cm; Wt 104.3 kg
[2024-12-10 00:44] LABS: BASO # 0.1 10*3/uL (0.0-0.1); BASO % 0.8 % (0.0-1.0); EOS # 0.4 10*3/uL (0.0-0.4); EOS % 4.9 % (1.0-4.0); MEAN CELL VOLUME 97.0 fl (80.0-94.0); MEAN CORPUSCULAR HGB 32.7 pg (27.0-31.0); MEAN PLATELET VOLUME 10.2 fl (9.6-12.3); MONO # 0.8 10*3/uL (0.1-1.0); MONO % 10.1 % (3.0-9.0); NEUT # 4.2 10*3/uL (2.3-7.9); NEUT % 50.7 % (47.0-73.0); NUCLEATED RED BLOOD CELL 0.0 % (0.0-0.0); NUCLEATED RED BLOOD CELL 0.0 10*3/uL (0.0-0.0); PLATELET COUNT AUTOMATED 207 10*3/uL (130-400); RED CELL DISTRI WIDTH 14.1 % (0-14.5)
[2024-12-10 01:05] LABS: BUN 16 mg/dl (9-23)
[2024-12-10] MEDS ORDERED: LORazepam 1 MG TAB PO ONE (02:55)
== END 2024-12-10 03:04 | disposition home or self-care (01) ==
LOC: ED 00:25
PROVIDERS: Internal Medicine
DX: R07.2 Precordial pain (principal); R06.00 Dyspnea, unspecified; J44.9 Chronic obstructive pulmonary disease, unspecified; F17.210 Nicotine dependence, cigarettes, uncomplicated; Z79.899 Other long term (current) drug therapy; Z98.890 Other specified postprocedural states